=== PATIENT | male | born 1990 | race Caucasian/White ===

== ENCOUNTER 2021-01-13 21:06 | Emergency (ER) | payer OTHER, SELFPAY ==
--- NOTE | 2021-01-13 | ECG_ITS ---
Test Reason : CHEST PAIN Blood Pressure : / mmHG Vent. Rate : 085 BPM Atrial Rate : 085 BPM P-R Int : 120 ms QRS Dur : 094 ms QT Int : 372 ms P-R-T Axes : 058 -52 -28 degrees QTc Int : 442 ms Normal sinus rhythm Left axis deviation Nonspecific ST and T wave abnormality Borderline ECG No previous ECGs available Referred By: Generic ED Physician Electronically Signed By:KIT CORTES
[2021-01-13 21:13] VITALS: BP 112/72; PULSE 86; RESP 16; TEMP 36.8; O2SAT 98; BMI 20.5
--- NOTE | 2021-01-13 22:48 | ED_ITS ---
HPI - Back Pain/Injury General Chief Complaint: Back Pain/Injury Stated Complaint: SHOULDER PAIN Time Seen by Provider: 01/13/21 22:36 Source: patient Mode of arrival: ambulatory Limitations: no limitations History of Present Illness HPI Narrative: Patient comes to emergency room complaining of left-sided upper back pain. Patient states upper back started 1 week ago, woke up with pain, unable to turn his neck towards the left side. Patient has been trying to use lidocaine patches, heating pads, ice, Tylenol, 2 doses of oral morphine with no relief. Patient denies clavicular pain or shoulder joint pain, all the pain is in the left side of the neck. Patient denies headache, no fever chills Related Data Previous Rx's Medication Instructions Recorded diazepam [Valium] 5 mg PO BID PRN #7 tab 01/14/21 hydromorphone [Dilaudid] 2 mg PO Q6H PRN #7 tab 01/14/21 Allergies Allergy/AdvReac Type Severity Reaction Status Date / Time diphenhydramine Allergy Severe Rash Verified 01/13/21 21:12 [From Benadryl] amoxicillin Allergy Rash Verified 01/13/21 21:12 ibuprofen Allergy Redness of Verified 01/13/21 21:12 Skin Penicillins [PCN] Allergy Rash Verified 01/13/21 21:12 tramadol Allergy Unknown Verified 01/13/21 21:12 ticagrelor [From Brilinta] AdvReac Severe Redness of Verified 01/13/21 21:12 Skin Review of Systems Review of Systems: Constitutional : No Weight loss, No Fever, No Chills, No Night Sweats, No Fatigue, No Malaise ENT/Mouth : No Hearing loss, No Ear Pain, No Nasal Congestion, No Sinus Pain, No Hoarseness, No sore throat, No Rhinorrhea, No Swallowing Difficulty Eyes: No Eye Pain, No Swelling, No Redness, No Foreign Body, No Discharge, No Vision Changes Cardiovascular : No Chest Pain, No SOB, No Dyspnea on Exertion, No Orthopnea, No Edema, No Palpitations Respiratory : No Cough, No Sputum, No Wheezing, No Smoke Exposure, No Dyspnea Gastrointestinal : No Nausea, No Vomiting, No Diarrhea, No Constipation, No abdominal Pain, No Hematochezia, No Melena Genitourinary : no irregular bleeding, No Dysuria, No Urinary Frequency, No Hematuria, No Urinary Incontinence, No Urgency, No Flank Pain, No Urinary Flow Changes, No Hesitancy Musculoskeletal : Complaining of left-sided neck pain and left-sided upper back Skin : No Skin Lesions, No rash Neuro : No Weakness, No Numbness, No Paresthesias, No Loss of Consciousness, No Dizziness, No Headache Psych : No Anxiety/Panic, No Depression, No SI/HI/AH/VH, No Social Issues, Heme/Lymph: No Bruising, No Bleeding,No Lymphadenopathy Endocrine : No Polyuria, No Polydipsia, No Temperature Intolerance [facility] Past Medical History Medical History (Updated 01/14/21 @ 00:04 by Ambreen Wong MD) Atrial septal defect Heart attack Lupus (systemic lupus erythematosus) Lupus nephritis Myocardial infarction Visual impairment Social History Social History Advance Directives: No Advance Directives Information Provided: Yes Physical Exam Vital Signs: Vital Signs: Last Vital Signs Temp 98.2 F 01/13/21 21:13 Pulse 86 01/13/21 21:13 Resp 16 01/13/21 21:13 BP 112/72 01/13/21 21:13 Pulse Ox 98 01/13/21 21:13 Body Mass Index 20.5 Appearance: Alert. Oriented X3. No acute distress. Eyes: Pupils equal, round and reactive to light. ENT: Pharynx normal. Neck: Pain to palpation over the left sternocleidomastoid, patient is able to flex and extend the neck but triggering pain over left side of her neck CVS: Normal heart rate and rhythm. Pulses normal. Normal S1 and S2 Respiratory: No respiratory distress. Breath sounds normal. No Wheezing. No rales Abdomen: Soft and nontender. No rigidity. No distention. Back: Pain to palpation over the left trapezius muscle distribution, palpable muscle spasms on the left side upper back Skin: Skin warm and dry. Normal skin color. Normal skin turgor. Extremities: No lower extremity edema. No lower extremity edema. No Lacerations. No Rash Neuro: Oriented X 3. No motor deficit. No sensory deficit. Moving all extermities. No slurred speech. Course Course Course Narrative: Patient states that the pain is improving and is able to move his neck a little bit more. Discharge Plan Discharge Clinical Impression: Muscle spasm of back Patient Disposition: Home, Self-Care Instructions: Spasmodic Torticollis (ED), Muscle Spasm (ED) Additional Instructions: Please follow-up with your primary care physician tomorrow. If you have any worsening or new symptoms, please return to the emergency room or call 911 Prescriptions: New diazepam [Valium] 5 mg tablet 5 mg PO BID PRN (Reason: muscle spasm) Qty: 7 RF: 0 hydromorphone [Dilaudid] 2 mg tablet 2 mg PO Q6H PRN (Reason: pain) Qty: 7 RF: 0
[2021-01-13] MEDS: diazePAM 5 MG TABLET PO (23:10)
[2021-01-13] MEDS: HYDROmorphone HCl 1 MG/ML SYRINGE IM (23:10)
[2021-01-14] VITALS: BP 108/67; PULSE 80; RESP 16; O2SAT 96
== END 2021-01-14 00:18 | disposition home or self-care (01) ==
PROVIDERS: Emergency Provider Emergency Medicine; PCP Nurse Practitioner
DX: M62.830 Muscle spasm of back (principal); M25.512 Pain in left shoulder; M54.5 Low back pain; M54.2 Cervicalgia
CPT/HCPCS: 93005; 96372; 99284; J1170

== ENCOUNTER 2021-01-22 23:16 | Emergency (ER) | payer OTHER, SELFPAY ==
[2021-01-23 00:46] VITALS: BP 106/57; PULSE 116; RESP 18; TEMP 37.5; O2SAT 98; BMI 20.1
== END 2021-01-23 02:37 | disposition left against medical advice (07) ==
PROVIDERS: Emergency Provider Emergency Medicine; PCP Nurse Practitioner
DX: Z04.1 Encounter for examination and observation following transport accident (principal)
CPT/HCPCS: 99281; 99282